=== PATIENT | male | born 1935 | race Caucasian/White ===

== ENCOUNTER → 2017-05-30 | Outpatient (REF) ==
[~2017-05-30] MED LIST: NO HOME MEDICATIONS
== END ==
LOC: ZLAB.WCH 14:08
DX: Z01.89 Encounter for other specified special examinations (principal)

== ENCOUNTER 2017-07-23 14:46 | Inpatient (IN) | payer MEDICARE ==
[~2017-07-23] VITALS: Ht 182.9 cm; Wt 82.5 kg
[2017-07-23] VITALS (176 sets, daily range): BP systolic 116; BP diastolic 69; PULSE 82; TEMP 97.8; O2SAT 81–100
[2017-07-23 15:56] LABS: HEMATOCRIT 41.9 % (42.0-52.0); HEMOGLOBIN 12.7 g/dl (13.5-18.0); MEAN CELL VOLUME 79 fl (80.0-100.0); MEAN CORPUSCULAR HEMOGLOBIN 24 pg (27.0-31.0); MEAN CORPUSCULAR HGB CONC 30 g/dl (33.0-37.0); MEAN PLATELET VOLUME 10.7 fl (7.4-10.4); PLATELET COUNT 523 K/mm3 (130-400); RED BLOOD COUNT 5.32 M/mm3 (4.20-5.60)
[2017-07-23 15:57] LABS: ADD PATHOLOGY DIFF REVIEW NO; WHITE BLOOD COUNT 25.5 K/mm3 (4.8-10.8)
[2017-07-23 16:10] LABS: ADJUSTED CALCIUM 9.8 mg/dL (8.4-10.2); ALANINE AMINOTRANSFERASE 59 U/L (21-72); ALBUMIN 3.5 gm/dL (3.5-5.0); ALKALINE PHOSPHATASE 196 U/L (50-136); ANION GAP 15 mmol/L (7-16); BILIRUBIN,TOTAL 1.3 mg/dL (0.0-1.0); BLOOD UREA NITROGEN 65 mg/dL (9-20); CALCIUM 9.4 mg/dL (8.4-10.2); CARBON DIOXIDE 24 mmol/L (22-30); CHLORIDE 119 mmol/L (98-107); CREATININE, serum 1.84 mg/dL (0.66-1.25); GLUCOSE 271 mg/dL (74-106); POTASSIUM 4.1 mmol/L (3.4-5.0); SODIUM 158 mmol/L (137-145); TOTAL PROTEIN 7.5 gm/dL (6.4-8.2)
[2017-07-23 16:11] LABS: BAND 2 % (0-10); LYMPHOCYTE 6 % (20.0-51.0); METAMYELOCYTE 1 % (0-0); NEUTROPHILS 90 % (42.0-75.2); PLATELET ESTIMATE INCREASED (NORMAL); TOTAL CELLS COUNTED 100
[2017-07-23 16:12] LABS: INFLUENZA A NEGATIVE; INFLUENZA B NEGATIVE
[2017-07-23 16:13] LABS: ANISOCYTOSIS 1+
[2017-07-23 16:14] LABS: HYPOCHROMIA 1+; MICROCYTOSIS 1+
[2017-07-23 16:19] LABS: B-TYPE NATRIURETIC PEPTIDE 720 pg/mL (0-450)
[2017-07-23 16:22] LABS: TROPONIN-I < 0.012 ng/mL (0.000-0.034)
[2017-07-23 16:59] LABS: C-REACTIVE PROTEIN 36.4 mg/dL (0.0-0.9)
[2017-07-23 17:32] LABS: COLLECTION METHOD CATHETER
[2017-07-23 17:37] LABS: MUCOUS Present /lpf; PH 5 (5-8); SQUAMOUS EPITHELIAL None Seen /hpf; URINE APPEARANCE Clear; URINE BACTERIA Rare /hpf; URINE BILIRUBIN Negative (NEGATIVE); URINE BLOOD 1+ (NEGATIVE); URINE COLOR Amber; URINE GLUCOSE Negative (NEGATIVE); URINE KETONE Negative (NEGATIVE); URINE LEUKOCYTE ESTERASE Negative (NEGATIVE); URINE PROTEIN(semi-quant) 1+ (NEGATIVE); URINE RBC 0-2 /hpf; URINE UROBILINOGEN >=4.0 mg/dL (NEGATIVE); URINE WBC 0-2 /hpf
[2017-07-23 19:21] LABS: INR 1.2 (0.8-3.0); PROTHROMBIN TIME 14.4 SECONDS (9.7-12.8)
[2017-07-23 19:25] LABS: PHOSPHOROUS 5.9 mg/dL (2.5-4.5)
[2017-07-23 20:14] LABS: VENOUS BLOOD GAS BE -0.1 (-4-4); VENOUS BLOOD GAS SAO2 52.3 % (60-80)
[2017-07-23 20:15] LABS: VENOUS BLOOD GAS SITE CENTRAL LINE
[2017-07-23 20:28] LABS: ARTERIAL BLD GAS O2 SATURATION 93.2 % (92-100); ARTERIAL BLD GAS TCO2 CT 23.7; ARTERIAL BLOOD GAS HCO3 22.7 meq/L (22-26); ARTERIAL BLOOD GAS PO2 70.1 mmHg (80-100); ARTERIAL BLOOD GAS pH 7.44 (7.35-7.45); OXYHEMOGLOBIN 92.7 %
[2017-07-23 20:29] LABS: ALLEN TEST YES; ALLENS TEST RESULT PASS; ATS? YES
[2017-07-23] MEDS ORDERED: ATIVAN 0.50.5 MG/TAB PO (21:09)
[2017-07-23] MEDS ORDERED: RISPERDAL 0.20.25 MG PO (21:10)
[2017-07-23] MEDS ORDERED: MELATONIN5 M1 PO (21:12)
[2017-07-24] VITALS (1128 sets, daily range): BP systolic 88–107; BP diastolic 55–77; PULSE 52–74; TEMP 97.3–98.4; O2SAT 52–100
[2017-07-24 00:45] LABS: VENOUS BLOOD GAS BE -0.9 (-4-4); VENOUS BLOOD GAS SAO2 57.5 % (60-80)
[2017-07-24 00:46] LABS: VENOUS BLOOD GAS SITE CENTRAL LINE
[2017-07-24 02:06] LABS: CALCIUM 6.6 mg/dL (8.4-10.2); CREATININE, serum 0.96 mg/dL (0.66-1.25); POTASSIUM 3.3 mmol/L (3.4-5.0)
[2017-07-24 04:29] LABS: VENOUS BLOOD GAS BE -3.6 (-4-4); VENOUS BLOOD GAS SAO2 55.8 % (60-80)
[2017-07-24 04:30] LABS: VENOUS BLOOD GAS SITE CENTRAL LINE
[2017-07-24 04:31] LABS: BASO % 0.1 % (0.0-2.0); GRAN # 15.9 (1.4-6.5); GRAN % 90.9 % (42.2-75.2); LYMPH # 0.8 (1.2-3.4); LYMPH % 4.6 % (20.0-51.0); MEAN CELL VOLUME 79 fl (80.0-100.0); MEAN CORPUSCULAR HGB CONC 30 g/dl (33.0-37.0); MEAN PLATELET VOLUME 10.4 fl (7.4-10.4); MONO # 0.7 (0.1-0.6); MONO % 3.8 % (1.7-9.3); WHITE BLOOD COUNT 17.5 K/mm3 (4.8-10.8)
[2017-07-24 04:41] LABS: INR 1.4 (0.8-3.0)
[2017-07-24 04:43] LABS: ADJUSTED CALCIUM 8.5 mg/dL (8.4-10.2); ALBUMIN 2.5 gm/dL (3.5-5.0); BILIRUBIN,TOTAL 0.8 mg/dL (0.0-1.0); CALCIUM 7.3 mg/dL (8.4-10.2); CREATININE, serum 1.01 mg/dL (0.66-1.25); TOTAL PROTEIN 5.4 gm/dL (6.4-8.2)
[2017-07-24 04:45] LABS: HEMATOCRIT 30.9 % (42.0-52.0); HEMOGLOBIN 9.2 g/dl (13.5-18.0); MEAN CORPUSCULAR HEMOGLOBIN 24 pg (27.0-31.0); PLATELET COUNT 343 K/mm3 (130-400)
[2017-07-24 05:35] LABS: ARTERIAL BLD GAS TCO2 CT 20.8; ARTERIAL BLOOD GAS BASE EXCESS -3.4 (-2-2); ARTERIAL BLOOD GAS HCO3 19.9 meq/L (22-26); ARTERIAL BLOOD GAS PO2 69.5 mmHg (80-100); ARTERIAL BLOOD GAS pH 7.44 (7.35-7.45); OXYHEMOGLOBIN 92.2 %
[2017-07-24 05:36] LABS: ALLEN TEST YES; ALLENS TEST RESULT PASS; ATS? YES
[2017-07-24 16:52] LABS: VENOUS BLOOD GAS SAO2 56.5 % (60-80)
[2017-07-24 16:53] LABS: VENOUS BLOOD GAS SITE CENTRAL LINE
[2017-07-24 17:59] LABS: VENOUS BLOOD GAS BE -4.6 (-4-4); VENOUS BLOOD GAS SAO2 53.5 % (60-80); VENOUS BLOOD GAS SITE CENTRAL LINE
[2017-07-24 18:07] LABS: MEAN CELL VOLUME 79 fl (80.0-100.0); MEAN CORPUSCULAR HGB CONC 30 g/dl (33.0-37.0); MEAN PLATELET VOLUME 10.4 fl (7.4-10.4); PLATELET COUNT 345 K/mm3 (130-400); RED BLOOD COUNT 3.71 M/mm3 (4.20-5.60); WHITE BLOOD COUNT 16.1 K/mm3 (4.8-10.8)
[2017-07-24 18:08] LABS: HEMATOCRIT 29.3 % (42.0-52.0); HEMOGLOBIN 8.9 g/dl (13.5-18.0); MEAN CORPUSCULAR HEMOGLOBIN 24 pg (27.0-31.0)
[2017-07-24 18:23] LABS: CALCIUM 7.3 mg/dL (8.4-10.2); CREATININE, serum 0.9 mg/dL (0.66-1.25); POTASSIUM 3.3 mmol/L (3.4-5.0)
[2017-07-25] VITALS (651 sets, daily range): BP systolic 98–126; BP diastolic 53–68; PULSE 72–97; TEMP 97–98.5; O2SAT 70–100
[2017-07-25 01:39] LABS: ARTERIAL BLD GAS O2 SATURATION 94.6 % (92-100); ARTERIAL BLD GAS TCO2 CT 21.2; ARTERIAL BLOOD GAS BASE EXCESS -3.8 (-2-2); ARTERIAL BLOOD GAS HCO3 20.2 meq/L (22-26); ARTERIAL BLOOD GAS PO2 79.9 mmHg (80-100); ARTERIAL BLOOD GAS pH 7.41 (7.35-7.45)
[2017-07-25 01:40] LABS: ALLEN TEST YES; ALLENS TEST RESULT PASS; ATS? YES
[2017-07-25 05:44] LABS: BASO % 0.2 % (0.0-2.0); EOS % 0.1 % (0-4.0); GRAN % 86.4 % (42.2-75.2); LYMPH # 1.1 (1.2-3.4); LYMPH % 8.6 % (20.0-51.0); MEAN CELL VOLUME 80 fl (80.0-100.0); MEAN CORPUSCULAR HGB CONC 30 g/dl (33.0-37.0); MEAN PLATELET VOLUME 10.4 fl (7.4-10.4); MONO # 0.5 (0.1-0.6); MONO % 3.9 % (1.7-9.3); PLATELET COUNT 335 K/mm3 (130-400); RED BLOOD COUNT 3.35 M/mm3 (4.20-5.60); WHITE BLOOD COUNT 12.7 K/mm3 (4.8-10.8)
[2017-07-25 05:46] LABS: HEMATOCRIT 26.8 % (42.0-52.0); MEAN CORPUSCULAR HEMOGLOBIN 24 pg (27.0-31.0)
[2017-07-25 05:49] LABS: INR 1.3 (0.8-3.0); PROTHROMBIN TIME 15.2 SECONDS (9.7-12.8)
[2017-07-25 06:08] LABS: ADJUSTED CALCIUM 8.6 mg/dL (8.4-10.2); ALBUMIN 2.1 gm/dL (3.5-5.0); BILIRUBIN,TOTAL 0.5 mg/dL (0.0-1.0); CALCIUM 7.1 mg/dL (8.4-10.2); CREATININE, serum 0.84 mg/dL (0.66-1.25); MAGNESIUM 2.3 mg/dL (1.6-2.3); POTASSIUM 3.9 mmol/L (3.4-5.0); TOTAL PROTEIN 4.8 gm/dL (6.4-8.2)
[2017-07-26] VITALS (8 sets, daily range): BP systolic 82–111; BP diastolic 45–71; PULSE 45–100; TEMP 97.2–98.4
[2017-07-26 06:46] LABS: MEAN CELL VOLUME 79 fl (80.0-100.0); MEAN CORPUSCULAR HGB CONC 30 g/dl (33.0-37.0); MEAN PLATELET VOLUME 11.1 fl (7.4-10.4); PLATELET COUNT 317 K/mm3 (130-400); RED BLOOD COUNT 3.23 M/mm3 (4.20-5.60)
[2017-07-26 06:56] LABS: ADD PATHOLOGY DIFF REVIEW NO; HEMATOCRIT 25.4 % (42.0-52.0); HEMOGLOBIN 7.7 g/dl (13.5-18.0); MEAN CORPUSCULAR HEMOGLOBIN 24 pg (27.0-31.0)
[2017-07-26 07:01] LABS: ADJUSTED CALCIUM 9.1 mg/dL (8.4-10.2); ALBUMIN 2.1 gm/dL (3.5-5.0); BILIRUBIN,TOTAL 0.6 mg/dL (0.0-1.0); CALCIUM 7.6 mg/dL (8.4-10.2); CREATININE, serum 0.83 mg/dL (0.66-1.25); POTASSIUM 3.6 mmol/L (3.4-5.0); TOTAL PROTEIN 4.9 gm/dL (6.4-8.2)
[2017-07-26 09:33] LABS: BAND 8 % (0-10); EOSINOPHIL 2 % (0-4); HYPOCHROMIA 1+; LYMPHOCYTE 9 % (20.0-51.0); NEUTROPHILS 73 % (42.0-75.2); PLATELET ESTIMATE NORMAL (NORMAL); TOTAL CELLS COUNTED 100
[2017-07-26 09:34] LABS: ANISOCYTOSIS 1+
[2017-07-27 03:28] VITALS: BP 96/64; PULSE 71; TEMP 98.4
[2017-07-27 07:22] LABS: BASO % 0.2 % (0.0-2.0); EOS # 0.2 (0.0-0.7); GRAN # 6.9 (1.4-6.5); GRAN % 76.7 % (42.2-75.2); LYMPH # 1.2 (1.2-3.4); LYMPH % 13.3 % (20.0-51.0); MEAN CELL VOLUME 78 fl (80.0-100.0); MEAN CORPUSCULAR HGB CONC 31 g/dl (33.0-37.0); MONO # 0.6 (0.1-0.6); MONO % 6.6 % (1.7-9.3); PLATELET COUNT 336 K/mm3 (130-400); WHITE BLOOD COUNT 9.1 K/mm3 (4.8-10.8)
[2017-07-27 07:57] VITALS: BP 109/61; PULSE 70; TEMP 98.7
[2017-07-27 08:11] LABS: HEMATOCRIT 25.7 % (42.0-52.0); HEMOGLOBIN 7.9 g/dl (13.5-18.0); MEAN CORPUSCULAR HEMOGLOBIN 24 pg (27.0-31.0)
[2017-07-27 08:16] LABS: CALCIUM 7.7 mg/dL (8.4-10.2); CREATININE, serum 0.8 mg/dL (0.66-1.25); MAGNESIUM 2.2 mg/dL (1.6-2.3); PHOSPHOROUS 2.7 mg/dL (2.5-4.5); POTASSIUM 3.8 mmol/L (3.4-5.0)
[2017-07-27 12:01] VITALS: BP 111/57; PULSE 71; TEMP 97.3
[2017-07-27 15:43] VITALS: BP 97/50; PULSE 99; TEMP 97.8
[2017-07-27 20:47] VITALS: BP 141/100; PULSE 75; TEMP 97.8
[2017-07-28 01:44] VITALS: BP 88/50; PULSE 62; TEMP 97.4
[2017-07-28 05:52] VITALS: BP 97/49; PULSE 65; TEMP 98.2
[2017-07-28 07:57] LABS: MEAN CELL VOLUME 78 fl (80.0-100.0); MEAN CORPUSCULAR HGB CONC 31 g/dl (33.0-37.0); MEAN PLATELET VOLUME 10.4 fl (7.4-10.4); PLATELET COUNT 359 K/mm3 (130-400); RED BLOOD COUNT 3.22 M/mm3 (4.20-5.60); WHITE BLOOD COUNT 10.4 K/mm3 (4.8-10.8)
[2017-07-28 08:01] VITALS: BP 92/56; PULSE 73; TEMP 97.9
[2017-07-28 08:03] LABS: ADD PATHOLOGY DIFF REVIEW NO; HEMATOCRIT 25.1 % (42.0-52.0); HEMOGLOBIN 7.7 g/dl (13.5-18.0); MEAN CORPUSCULAR HEMOGLOBIN 24 pg (27.0-31.0)
[2017-07-28 08:04] LABS: ADJUSTED CALCIUM 9.4 mg/dL (8.4-10.2); BILIRUBIN,TOTAL 0.5 mg/dL (0.0-1.0); CALCIUM 7.8 mg/dL (8.4-10.2); CREATININE, serum 0.81 mg/dL (0.66-1.25); POTASSIUM 3.9 mmol/L (3.4-5.0); TOTAL PROTEIN 4.6 gm/dL (6.4-8.2)
[2017-07-28 08:16] LABS: ANISOCYTOSIS 1+; BAND 3 % (0-10); EOSINOPHIL 1 % (0-4); LYMPHOCYTE 7 % (20.0-51.0); MYELOCYTE 2 % (0-0); NEUTROPHILS 85 % (42.0-75.2); TOTAL CELLS COUNTED 100
[2017-07-28 08:17] LABS: PLATELET ESTIMATE NORMAL (NORMAL); POLYCHROMASIA 2+; TARGET CELLS 2+
[2017-07-28 08:18] LABS: OVALOCYTES 1+
[2017-07-28 11:09] LABS: RETIC % 2.1 % (0.5-3.52)
[2017-07-28 11:19] VITALS: BP 154/93; PULSE 68; PULSE 83; TEMP 97.6
[2017-07-28] MEDS ORDERED: IPRATROPIUM BROM3 M1 IH (11:33)
[2017-07-28] MEDS ORDERED: LEVAQUIN 750MG750 M1 PO (11:33)
[2017-07-28] MEDS ORDERED: FERROUS SU325 MG/TAB PO (11:33)
[2017-07-28 15:51] VITALS: BP 154/93; PULSE 83; TEMP 97.6
== END 2017-07-28 16:30 | DRG 871 ==
LOC: COL.ER 14:46 → ICU 17:31 → MEDICAL 07-25 15:24
PROVIDERS: Emergency Medicine; Family Medicine; Internal Medicine; Internal Medicine Pulmonary Disease; Nurse Practitioner Family; Physician Assistant
PROC: 02HV33Z Insertion of Infusion Device into Superior Vena Cava, Percutaneous Approach (ICD-10-PCS; principal; 2017-07-23)
DX: A41.9 Sepsis, unspecified organism (principal); J18.9 Pneumonia, unspecified organism; N17.9 Acute kidney failure, unspecified; E87.0 Hyperosmolality and hypernatremia; E44.0 Moderate protein-calorie malnutrition; E87.2 Acidosis; Z66 Do not resuscitate; R65.20 Severe sepsis without septic shock; E86.0 Dehydration; F03.90 Unspecified dementia, unspecified severity, without behavioral disturbance, psychotic disturbance, mood disturbance, and anxiety; R73.9 Hyperglycemia, unspecified
CPT/HCPCS: 99223-AI; 99232-AI; 99233-AI; 99239; A4314; C1751; C1894; J1644; J1650; J1720; J1956; J2543; J3370; J3480; J7030; J7040; J7050